=== PATIENT | female | born 1995 | race Caucasian/White ===

== ENCOUNTER 2022-11-27 13:19 | Outpatient (CLI) | payer MEDICARE, SELFPAY ==
--- NOTE | ~2022-11-27 | US_ITS ---
EXAMINATION: US OB <=14 wk fetus w TV DATE: 11/27/2022 14:23 INDICATION: Low abdominal pain. Other specified related conditions. TECHNIQUE: Real-time transabdominal and transvaginal pelvic ultrasound was performed. COMPARISON: None. FINDINGS: TRANSABDOMINAL ULTRASOUND: The uterus measures 8.6 x 4.2 x 5.9 cm. TRANSVAGINAL ULTRASOUND: There is an intrauterine gestational sac. A yolk sac is identified. The fet al crown rump length measures 0.3 cm, which correlates with an estimated gestational age of 5 weeks a nd 6 day(s) (+/-) 4 day(s). heart motion is not identified by M-mode Doppler, which may be norm al at this size. The right ovary measures 2.7 x 1.8 x 1.7 cm. There is normal vascular flow in right ovary. The left ovary is not visualized. There is no free fluid in the pelvis. IMPRESSION: 1. Single intrauterine gestation with estimated date of delivery of 07/24/2023. 2. Left ovary not visualized. Reviewed, dictated and finalized at location A. [employer] IMPRESSION: 1. Single intrauterine gestation with estimated date of delivery of 07/24/2023 . 2. Left ovary not visualized.
== END 2022-11-27 13:20 | disposition home or self-care (01) ==
PROVIDERS: PCP Nurse Practitioner; Visit Provider Obstetrics & Gynecology
DX: O26.899 Other specified pregnancy related conditions, unspecified trimester (principal); R10.30 Lower abdominal pain, unspecified
CPT/HCPCS: 76801; 76817